=== PATIENT | male | born 1980 | race Caucasian/White ===

== ENCOUNTER 2017-04-13 18:19 | Emergency (ER) | payer SELFPAY ==
[2017-04-13 20:27] LABS: BASOPHILS % (AUTO) 1.2 % (0.0-5.0); EOSINOPHILS % (AUTO) 1.1 % (0.0-8.0); HEMATOCRIT 46.4 % (42-54); LYMPHOCYTES % (AUTO) 16.6 % (21.0-51.0); MEAN CORPUSCULAR HEMOGLOBIN 31.6 pg (27.0-33.0); MEAN CORPUSCULAR HGB CONC 34.6 g/dL (32.0-36.0); MEAN CORPUSCULAR VOLUME 91.3 fL (79-99); MONOCYTES % (AUTO) 7.8 % (3.0-13.0); NEUTROPHILS % (AUTO) 73.3 % (40.0-77.0); PLATELET COUNT (AUTO) 285 K/uL (130-400); RED BLOOD CELL COUNT(AUTO) 5.08 MIL/uL (4.50-6.20); WHITE BLOOD COUNT (AUTO) 12.2 K/uL (4.8-10.8)
[2017-04-13 20:35] LABS: CREATININE 0.9 mg/dL (0.5-1.5)
[2017-04-13 21:11] LABS: HIGH SENSITIVITY CRP 36.37 mg/L (0.0-3.0)
[2017-04-13 21:31] LABS: ERYTHROCYTE SEDIMENTATION RATE 22 MM/HR (0-15)
[2017-04-13] MEDS ORDERED: CEFTRIAXONE SODIUM 1 GM ONE (22:23)
[2017-04-13] MEDS ORDERED: KETOROLAC TROMETHAMINE 30MG/ML ONE (22:23)
== END 2017-04-13 23:16 | disposition home or self-care (01) ==
LOC: EDH 18:19
DX: S93.491A Sprain of other ligament of right ankle, initial encounter (principal); L03.116 Cellulitis of left lower limb; B95.61 Methicillin susceptible Staphylococcus aureus infection as the cause of diseases classified elsewhere; Z72.0 Tobacco use; X58.XXXA Exposure to other specified factors, initial encounter; Y93.89 Activity, other specified; Y92.89 Other specified places as the place of occurrence of the external cause; Y99.9 Unspecified external cause status
CPT/HCPCS: 36415; 73610; 80048; 84550; 85025; 85651; 86141; 93005; 96361 ×2; 96374; 96375; 99285; J0696; J1885